=== PATIENT | male | born 1980 | race American Indian/Alaskan Native ===

== ENCOUNTER 2022-02-12 19:49 | Emergency (ER) | payer OTHER ==
[2022-02-12] MEDS ORDERED: Aspirin 81 MG Tab.Chew PO ONE (19:53)
[2022-02-12] MEDS ORDERED: Sodium Chloride 0.9% 10 ML Syringe FLUSH PRN (19:53)
[2022-02-12] MEDS ORDERED: Gabapentin 300 MG Cap PO ONE (19:58)
[2022-02-12 20:16] LABS: ESTIMATED GFR 77 mL/min (>60); TROPONIN I HIGH SENSITIVITY 4.3 pg/mL (<=60.3)
== END 2022-02-12 21:50 | disposition home or self-care (01) ==
LOC: JP.ED 19:49
DX: G89.29 Other chronic pain (principal); R07.89 Other chest pain; F17.210 Nicotine dependence, cigarettes, uncomplicated; R29.818 Other symptoms and signs involving the nervous system; Z88.8 Allergy status to other drugs, medicaments and biological substances; Z79.899 Other long term (current) drug therapy
CPT/HCPCS: 36415; 71045; 80053; 82150; 83690; 84484; 85025; 93005; 99285; A9270; 99283